=== PATIENT | male | born 1965 ===

== ENCOUNTER 2016-06-14 15:33 | Emergency (ER) | payer BC, OTHER ==
[2016-06-14] MEDS ORDERED: AZITHROMYCIN 500 MG TABLET PO ONE (16:25)
[2016-06-14] MEDS ORDERED: BENZONATATE 100 MG CAPSULE PO ONE (16:25)
[2016-06-14] MEDS ORDERED: PREDNISONE 20 MG TAB PO ONE (16:25)
--- NOTE | 2016-06-14 16:30 | Emergency Department Record ---
History of Present Illness - General Chief Complaint: Cough Stated Complaint: COUGH Time Seen by Provider: 06/14/16 16:22 Source: Patient, Family Mode of Arrival: Ambulatory Limitations: No limitations - History of Present Illness Initial Comments: 50 yo male presents with cough for one week. He has had congestion and low grade fevers. He has developed green sputum. NO blood. No history of asthma. He is a non smoker but smokes. No PCP. No history of CAD. MD Complaint: Cough, Fever, Nasal congestion Onset/Timin -: Week(s) Severity: Moderate Consistency: Intermittent Improves With: Nothing Worsens With: Nothing Associated Symptoms: Cough - Related Data Previous Rx's Medication Instructions Recorded Azithromycin [Zithromax] 250 mg PO DAILY #4 tab 06/14/16 Benzonatate [Tessalon] 2 cap PO Q8H PRN #20 cap 06/14/16 Prednisone [Prednisone 20Mg] 20 mg PO DAILY #5 tab 06/14/16 Allergies Allergy/AdvReac Type Severity Reaction Status Date / Time No Known Drug Allergies Allergy Verified 06/14/16 16:17 Travel Screening - Travel/Exposure Within Last 30 Days Have you traveled within the last 30 days?: Yes 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 Denies: Chills, Malaise, Weakness Eyes: Denies: Eye discharge ENT: Reports: Congestion. Denies: Ear pain, Epistaxis, Throat pain Respiratory: Reports: Cough, Dyspnea. Denies: Wheezes Cardiovascular: Denies: Chest pain, Palpitations, Syncope Endocrine: Denies: Fatigue Gastrointestinal: Denies: Abdominal pain, Diarrhea, Nausea, Vomiting Genitourinary: Denies: Dysuria, Frequency, Hematuria, Urgency Musculoskeletal: Denies: Arthralgia, Back pain, Joint swelling, Myalgia Skin: Denies: Bruising, Change in color, Rash Neurological: Denies: Confusion, Headache Psychiatric: Denies: Anxiety Hematological/Lymphatic: Denies: Blood Clots, Easy bleeding, Easy bruising, Swollen glands Past Medical History - SOCIAL HISTORY Smoking Status: Never smoker Alcohol Use: None Drug Use: None - RESPIRATORY Hx Respiratory Disorders: Yes Hx Bronchitis: Yes - CARDIOVASCULAR Hx Cardio Disorders: No - NEURO Hx Neuro Disorders: No - GI Hx GI Disorders: No - Hx Genitourinary Disorders: Yes Hx Kidney Stones: Yes - ENDOCRINE Hx Endocrine Disorders: No - MUSCULOSKELETAL Hx Musculoskeletal Disorders: Yes Hx Back Injury: Yes - PSYCH Hx Psych Problems: No - HEMATOLOGY/ONCOLOGY Hx Hematology/Oncology Disorders: Yes Hx Cancer: Yes Family Medical History Any Significant Family History?: No Physical Exam - General General Appearance: Alert, Oriented x3, Cooperative, No acute distress Limitations: No limitations - Head Head exam: Normal inspection - Eye Eye exam: Normal appearance. negative: Conjunctival injection, Periorbital swelling - ENT ENT exam: Normal exam, Mucous membranes moist, Normal orophraynx, TM's normal bilaterally Ear exam: Normal external inspection. negative: External canal tenderness Nasal Exam: Discharge. negative: Normal inspection, Dried blood Mouth exam: Normal external inspection, Tongue normal Teeth exam: Normal inspection. negative: Dental caries Throat exam: Normal inspection. negative: Tonsillar erythema, Tonsillar exudate - Neck Neck exam: Normal inspection, Full ROM. negative: Lymphadenopathy, Tenderness - Respiratory Respiratory exam: Decreased breath sounds, Rhonchi, Other (Non labored, no conversational dyspnea). negative: Normal lung sounds bilaterally, Chest wall tenderness, Prolonged expiratory, Respiratory distress, Stridor, Wheezes - Cardiovascular Cardiovascular Exam: Regular rate, Normal rhythm, Normal heart sounds - GI/Abdominal GI/Abdominal exam: Soft - Rectal Rectal exam: Deferred - exam: Deferred - Extremities Extremities exam: Normal inspection, Full ROM, Normal capillary refill. negative: Tenderness - Back Back exam: Reports: Normal inspection, Full ROM. Denies: CVA tenderness (R), CVA tenderness (L), Muscle spasm, Paraspinal tenderness, Rash noted, Tenderness , Vertebral tenderness - Neurological Neurological exam: Alert, Normal gait, Oriented X3, Reflexes normal - Psychiatric Psychiatric exam: Normal affect, Normal mood. negative: Agitated, Anxious, Depressed - Skin Skin exam: Dry, Intact, Normal color, Warm Course Vital Signs 06/14/16 16:09 Temperature 98.4 F Pulse Rate 92 H Respiratory 18 Rate Blood Pressure 133/71 Pulse Ox 96 - Reevaluation(s) Reevaluation #1: Vitals reviewed The patient will be placed on Zithromax given his productive green sputum No hypoxia 06/14/16 16:28 Disposition Disposition: Discharge Clinical Impression: Bronchitis Disposition: Home, Self-Care Condition: (1) Good Instructions: Acute Bronchitis (ED) Additional Instructions: Rest and stay well hydrated Return if worse, short of breath or any new concerns Prescriptions: Prednisone [Prednisone 20Mg] 20 mg PO DAILY #5 tab Benzonatate [Tessalon] 2 cap PO Q8H PRN #20 cap PRN Reason: Cough Azithromycin [Zithromax] 250 mg PO DAILY #4 tab Forms: Patient Portal Access Time of Disposition: 16:29
== END 2016-06-14 16:54 | disposition home or self-care (01) ==
LOC: ER 15:33
DX: J20.9 Acute bronchitis, unspecified (principal)
CPT/HCPCS: 99282; J7512